=== PATIENT | female | born 1950 | race Asian ===

== ENCOUNTER 2021-04-22 12:24 | Emergency (ER) | payer MEDICARE, OTHER ==
[~2021-04-22] VITALS: Ht 149.9 cm; Wt 50.2 kg
[~2021-04-22 12:24] MED LIST: ALPR0.5T93 PO; ASPI-496 PO; ESCI20TA10 PO; ESTR1PAT10 TD; FLUT9.9S NAS; LORA10CA PO; PRAV20TA2 PO
--- NOTE | 2021-04-22 13:26 | NUR ---
PT BIB SPOUSE VIA POV. PT STATES THAT SHE HAS HAD INTERMITTENT LT SHOULDER AND CP FOR "SEVERAL MONTHS". PT STATES HER PCP WANTED HER TO BE SEEN IN ED FOR THIS PAIN. PT RESTING IN [place], MONITORING IN PLACE, EKG DONE, SPOUSE AT BEDSIDE, DELPHINE AT THIS TIME, CHRIS.
[2021-04-22 13:57] LABS: BASOPHILS % (AUTO) 1 % (0-1); EOSINOPHILS % (AUTO) 3 % (1-7); LYMPHOCYTES % (AUTO) 18 % (22-44); MEAN CORPUSCULAR HEMOGLOBIN 33.5 pg (27.0-34.8); MEAN PLATELET VOLUME 7.3 fL (7.4-10.4); MONOCYTES % (AUTO) 9 % (2-9); NEUTROPHILS % (AUTO) 69 % (42-75); PLATELET COUNT 210 x10^3/uL (130-400); RED BLOOD COUNT 4.73 x10^6/uL (3.82-5.3); RED CELL DISTRIBUTION WIDTH 12.9 % (9.6-15.2)
[2021-04-22] MEDS ORDERED: ASPIRIN 81 MG TABLET CHEW PO ONE (14:00)
[2021-04-22 14:04] LABS: ALBUMIN 3.6 g/dL (3.4-5.0); ANION GAP 1 mmol/L (5-15); CALCIUM 9.3 mg/dL (8.5-10.1); CHLORIDE 103 mmol/L (98-107)
[2021-04-22] MEDS ORDERED: ASPIRIN 81 MG TABLET CHEW ONE (14:04)
[2021-04-22 14:10] LABS: ALANINE AMINOTRANSFERASE 47 U/L (12-78); ALKALINE PHOSPHATASE 60 U/L (45-117); BILIRUBIN,TOTAL 0.6 mg/dL (0.2-1.0); CREATININE 0.88 mg/dL (0.55-1.02); TOTAL PROTEIN 7.1 g/dL (6.4-8.2); TROPONIN I < 0.015 ng/mL (0.000-0.045)
--- NOTE | 2021-04-22 14:52 | NUR ---
REPORT TO SANTOS MICHELE.
[2021-04-22 15:01] VITALS: BP 129/78
--- NOTE | 2021-04-22 15:02 | NUR ---
ASSUMING CARE OF PT AFTER BEDSIDE REPORT FROM JESSIKA GRAHAM. VSS. AKERS. PT UP FOR RECHECK
--- NOTE | 2021-04-22 15:45 | NUR ---
Patient given discharge instructions and they have confirmed that they understand the instructions. Patient ambulatory with steady gait. NAD, all questions answered appropriately, denies additional needs at this time. No personal belongings left in room after discharge.
== END 2021-04-22 15:46 | disposition home or self-care (01) ==
LOC: ED 14:52
DX: M47.812 Spondylosis without myelopathy or radiculopathy, cervical region (principal); R07.89 Other chest pain; G47.30 Sleep apnea, unspecified; R94.31 Abnormal electrocardiogram [ECG] [EKG]
CPT/HCPCS: 36415; 71045; 72125; 80053; 84484; 85025; 85379; 93005; 99285